=== PATIENT | male | born 1945 | race Caucasian/White ===

== ENCOUNTER → 2017-09-05 | Outpatient (CLI) | payer OTHER | LOC: FIMAGING 09:04 | PROVIDERS: ATTEND Physician Assistant | DX: J43.2 Centrilobular emphysema (principal); I25.10 Atherosclerotic heart disease of native coronary artery without angina pectoris; R91.1 Solitary pulmonary nodule; Z87.891 Personal history of nicotine dependence | CPT/HCPCS: G0103 ==

== ENCOUNTER 2018-01-05 08:43 | Day surgery (SDC) | payer OTHER ==
[2018-01-05] MEDS ORDERED: LIDOCAINE 1% 300 MG/30 ML SDV ONE (08:50)
[2018-01-05] MEDS ORDERED: BUPIVACAINE/EPI 0.5% 30 ML SDV ONE (08:50)
[2018-01-05] MEDS ORDERED: ceFAZolin 2 GM/SWFI 2 GM/20 ML SYR IVP ONE (09:01)
[2018-01-05] MEDS ORDERED: LR 1,000 ML IV ONE (09:01)
[2018-01-05] MEDS ORDERED: LIDOCAINE 1% 2 ML INJ ID PRN (09:01)
[2018-01-05] MEDS ORDERED: ONDANSETRON 4 MG/2 ML VIAL IVP PRN ×2 (09:51→11:49)
[2018-01-05] MEDS ORDERED: DEXAMETHASONE 4 MG/ML VIAL IVP PRN (09:51)
[2018-01-05] MEDS ORDERED: ALBUTEROL 3 ML DEYVIAL IH PRN (09:51)
[2018-01-05] MEDS ORDERED: ACETAMINOPHEN 500 MG TAB PO PRN (09:51)
[2018-01-05] MEDS ORDERED: fentaNYL 100 MCG/2 ML INJ IVP PRN (09:51)
[2018-01-05] MEDS ORDERED: NALOXONE HCL 0.4 MG/ML INJ IVP PRN (09:51)
--- NOTE | 2018-01-05 09:52 | PDANEPAE ---
ANE History of Present Illness R Inguinal Hernia ANE Past Medical History - Cardiovascular History Hx Hypertension: No Hx Arrhythmias: No Hx Chest Pain: No Hx Coronary Artery / Peripheral Vascular Disease: No Hx CHF / Valvular Disease: No Hx Palpitations: No Cardiovascular History Comment: pacer placed for Sick sinus syndrome - Pulmonary History Hx COPD: Yes Hx Asthma/Reactive Airway Disease: No Hx Recent Upper Respiratory Infection: No Hx Oxygen in Use at Home: Yes O2 in Use at Home (L/minute): 1.5 L NC for sleeping Hx Sleep Apnea: Yes Sleep Apnea Screening Result - Last Documented: Positive Pulmonary History Comment: uses Breo inhaler 1-2 x/wk - Neurologic History Hx Cerebrovascular Accident: No Hx Seizures: No Hx Dementia: No - Endocrine History Hx Diabetes: No - Renal History Hx Renal Disorders: No - Liver History Hx Hepatic Disorders: No - Neurological & Psychiatric Hx Hx Neurological and Psychiatric Disorders: Yes Neurological / Psychiatric History Comment: 4 compression fx-lumbar - Cancer History Hx Cancer: No - Congenital Disorder History Hx Congenital Disorders: Yes Congenital History Comment: born w/hiatal hernia - GI History Hx Gastrointestinal Disorders: Yes Gastrointestinal History Comment: on omeprazole-hernia - Other Health History Other Health History: R groin hernia-pain - Chronic Pain History Chronic Pain: Yes (R groin) - Surgical History Prior Surgeries: Ablation for SVT. pacer insertion. inguinal hernias x2. 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: [employer] Pacemaker Mode: DDD Date Pacemaker Last Checked: 12-21-17 ANE Patient History - Allergies Allergies/Adverse Reactions: hydrocodone bitartrate [From Vicodin] Allergy (Verified 01/02/18 12:06) Other-Enter Comments - Home Medications Home Medications: Aspirin EC [Aspirin EC 81 mg (*)] 81 mg PO DAILY 01/29/13 [Last Taken 02/14/16] Atorvastatin Calcium [Lipitor 40 mg (*)] 40 mg PO DAILY18 01/29/13 [Last Taken 02/14/16] Zolpidem Tartrate [Ambien 5MG (*)] 15 mg PO HS 01/29/13 [Last Taken 02/14/16] Omeprazole [Prilosec] 40 mg PO DAILY 02/07/14 [Last Taken 02/14/16] Breo Ellipta 100-25mcg Inh 1 puffs IH DAILY PRN 02/15/16 [Last Taken 02/14/16] - NPO status NPO Since - Liquids (Date): 01/04/18 NPO Since - Liquids (Time): 21:30 NPO Since - Solids (Date): 01/04/18 NPO Since - Solids (Time): 17:30 - Smoking Hx Smoking Status: Former smoker ANE Labs/Vital Signs - Vital Signs Blood Pressure: 143/89 Heart Rate: 84 Respiratory Rate: 18 O2 Sat (%): 90 Height: 175.26 cm Weight: 74.843 kg ANE Physical Exam - Airway Neck exam: FROM Mallampati Score: Class 2 Mouth exam: dentures - Pulmonary Pulmonary: clear to auscultation - Cardiovascular Cardiovascular: regular rate and rhythym - ASA Status ASA Status: III ANE Anesthesia Plan Anesthesia Plan: GA w LMA
[2018-01-05] MEDS ORDERED: PROPOFOL/EMULSION 500 MG/50 ML BOTTLE IV ONE (09:56)
[2018-01-05] MEDS ORDERED: fentaNYL 100 MCG/2 ML INJ ONE (09:58)
--- NOTE | 2018-01-05 10:06 | PDHPUP ---
History & Physical Update H&P update statement: This history and physical update is based on an assessment of the patient which was completed after admission or registration (within 24 hours), but prior to the surgery/procedure. H&P update: H&P reviewed & patient examined (right inguinal hernia marked in pre -op), no change in patient's condition since H&P completed
[2018-01-05] MEDS ORDERED: DEXAMETHASONE 4 MG/ML VIAL ONE (10:18)
[2018-01-05] MEDS ORDERED: ONDANSETRON 4 MG/2 ML VIAL ONE (10:18)
[2018-01-05] MEDS ORDERED: VASOPRESSIN 20 UNIT/ML VIAL ONE (10:39)
--- NOTE | 2018-01-05 11:24 | POSTANESTH ---
Post Anesthetic Evaluation Cardiovascular Status: Normal, Stable Respiratory Status: Normal, Stable Level of Consciousness/Mental Status: Alert and Oriented Pain Control: Adequate, Prn Tx Ordered Nausea/Vomiting Control: Adequate, Prn Tx Ordered Complications Possibly Related to Anesthesia: None Noted
[2018-01-05] MEDS ORDERED: OXYCODONE/APAP 5/325 TAB PO PRN (11:49)
[2018-01-05] MEDS ORDERED: SENNOSIDES/DOCUSATE SODIUM TAB PO SCH (12:00)
[2018-01-05 14:06] VITALS: BP 135/95
--- NOTE | 2018-01-05 18:03 | GOP ---
[f rep st] OPERATIVE REPORT DATE OF OPERATION: SURGEON: Cory Adkins MD, FACS ALTERATIONS SUPERVISOR: Pierre Jimenes CST. ANESTHESIA: General by laryngeal mask. ANESTHESIOLOGIST: Sina Clements D.O. PREOPERATIVE DIAGNOSIS: Recurrent right inguinal hernia without incarceration. POSTOPERATIVE DIAGNOSIS: Recurrent right inguinal hernia without incarceration. PROCEDURE PERFORMED: Open repair of recurrent right inguinal hernia with mesh. FINDINGS: A small recurrent indirect hernia at the site of the previous anterior mesh repair. No evidence of direct inguinal hernia. ESTIMATED BLOOD LOSS: 25 mL. DESCRIPTION OF PROCEDURE: After informed consent was obtained, the patient was brought to the operating room and placed under general anesthesia. The right groin was prepped and draped in usual fashion. Before proceeding, a time-out and identification of the patient was performed. 0.25% Marcaine was used to establish a regional field block. The planned incision site was infiltrated and the prior oblique incision over the inguinal canal was re-incised. Dissection carried out through skin, subcutaneous tissues and Uri fascia. The external oblique fascia was identified and dissected proximally and distally. There was considerable scar tissue present. The oblique fascia was infiltrated and incised in the direction of its fibers through the external ring. The cord structures were adherent to the underlying mesh. These were carefully dissected away from the mesh without injury to the vascular structures of the testicle. The vas deferens was intact. Near the internal ring, a small hernial defect was identified without a sac. There was a small amount of properitoneal fat that was protruding through the defect and this was reduced into the preperitoneal space. The inguinal floor was reconstructed with a piece of polypropylene mesh cut to an appropriate shape, sutured to the inguinal ligament starting at the pubic tubercle medially and extending to the internal ring laterally. Here, the mesh was cut in a keyhole fashion around the internal ring and sutured to itself and the inguinal ligament with interrupted 0 Nurolon sutures. Medially and superiorly, the mesh was secured to the internal oblique fascia with interrupted 0 Nurolon sutures. Laterally, the mesh was tucked between the external oblique and internal oblique muscles. The previous repair had a very small lateral extension and the mesh placed over this extended several centimeters beyond the previous repair. Upon completion, the repair was intact without undue tension. The cord structures were returned to their anatomic position after placement of Surgicel around the cord to prevent adhesions. The external oblique fascia was closed with continuous running 3-0 Vicryl suture. Subcutaneous tissues were approximated with 3-0 Vicryl suture. Skin was closed with 4-0 Monocryl suture in a subcuticular fashion. Mastisol and Steri-Strips were applied. Needle, sponge, and instrument count were correct. COMPLICATIONS: None. /[id number]/MODL MTDD
[2018-01-06] MEDS ORDERED: ENOXAPARIN 40 MG/0.4 ML SYR SC SCH (09:00)
== END 2018-01-05 13:45 | disposition home or self-care (01) ==
LOC: FSGY 08:43
PROVIDERS: ATTEND Surgery
PROC: 0YU50JZ Supplement Right Inguinal Region with Synthetic Substitute, Open Approach (ICD-10-PCS; principal; 2018-01-05 10:15)
DX: K40.91 Unilateral inguinal hernia, without obstruction or gangrene, recurrent (principal); I25.10 Atherosclerotic heart disease of native coronary artery without angina pectoris; I49.5 Sick sinus syndrome; I47.1 Supraventricular tachycardia; E78.5 Hyperlipidemia, unspecified; J44.9 Chronic obstructive pulmonary disease, unspecified; G47.33 Obstructive sleep apnea (adult) (pediatric); I73.9 Peripheral vascular disease, unspecified; Z87.891 Personal history of nicotine dependence; Z95.0 Presence of cardiac pacemaker
CPT/HCPCS: C1781; J0690; J1100; J2405; J2704; J3010

== ENCOUNTER → 2019-02-05 | Outpatient (CLI) | payer OTHER | LOC: FCPNEURO 20:00 ==